=== PATIENT | male | born 1975 | race American Indian/Alaskan Native ===

== ENCOUNTER 2019-10-07 16:17 | Emergency (ER) | payer MEDICARE, MEDICAID ==
[~2019-10-07] VITALS: Ht 182.9 cm; Wt 81.5 kg
[~2019-10-07 16:17] MED LIST: ALBU8.5H8 INH; ATOR40TA7 PO; BACL10TA PO; BENA40TA73 PO; CHOL10002 PO; DIVA500T2 PO; FLUO10CA28 PO; FLUT16SP2 BOTHNARES; FLUT1AER INH; GABA-532 PO; LIT300C PO; LORA10TA65 PO; OMEP20TA23 PO; QUET25TA PO
[2019-10-07] MEDS ORDERED: LIDOcaine 1% W/epiNEPHrine 1:200,000 10ml vial IJ ONE (16:35)
[2019-10-07] MEDS ORDERED: ketorolac trometh inj. 60 MG/2 ML VIAL IM ONE (16:35)
[2019-10-07] MEDS ORDERED: IBUP-1984 PO (17:19)
[2019-10-07] MEDS ORDERED: CYCL-1 PO (17:19)
[2019-10-07 17:25] VITALS: BP 174/113
== END 2019-10-07 17:25 | disposition home or self-care (01) ==
LOC: ER 16:17
DX: M25.511 Pain in right shoulder (principal); M54.2 Cervicalgia; F17.200 Nicotine dependence, unspecified, uncomplicated; Z72.89 Other problems related to lifestyle; Z88.5 Allergy status to narcotic agent; Z88.8 Allergy status to other drugs, medicaments and biological substances; Z79.899 Other long term (current) drug therapy
CPT/HCPCS: 20552; 96372; 99283; J1885